=== PATIENT | male | born 1990 | race Two or more races ===

== ENCOUNTER → 2018-10-24 | Outpatient (REF) | payer OTHER ==
[2018-10-24 21:52] LABS: CHLAMYDIA DNA AMPLIFICATION NEGATIVE (NEGATIVE); GC DNA AMPLIFICATION NEGATIVE (NEGATIVE)
== END ==
LOC: M SFHCLERA 16:48
PROVIDERS: ATTEND Nurse Practitioner Family
DX: R30.0 Dysuria (principal)

== ENCOUNTER 2019-11-24 12:53 | Emergency (ER) | payer OTHER ==
[~2019-11-24] VITALS: Ht 172.7 cm; Wt 63.9 kg
--- NOTE | 2019-11-24 14:53 | REP ---
CT brain: 11/24/2019. Indication: Headache. Technique: Unenhanced axial CT images of the brain were obtained from skull base to vertex with coronal reconstructions provided. Comparison: None. Findings: There is no acute intracranial hemorrhage, acute cortical infarction, mass effect, hydrocephalus or significant fluid within the visualized paranasal sinuses/mastoid air cells. Impression: No acute intracranial process. Electronically Signed by Ajit Abdalla DO 11/24/2019 02:44 P
[2019-11-24] MEDS ORDERED: ONDA4TAB6 PO (15:03)
[2019-11-24] MEDS ORDERED: KETO10TAB PO (15:03)
[2019-11-24 15:26] VITALS: BP 137/84
== END 2019-11-24 15:27 | disposition home or self-care (01) ==
LOC: M ED 12:53
DX: R51 Headache (principal); R20.2 Paresthesia of skin

== ENCOUNTER 2020-02-07 15:12 | Emergency (ER) | payer OTHER ==
[~2020-02-07] VITALS: Ht 172.7 cm; Wt 62.7 kg
[~2020-02-07 15:12] MED LIST: KETO10TAB PO; ONDA4TAB6 PO
[2020-02-07] MEDS ORDERED: NS 1,000 ML IV ONE (15:30)
[2020-02-07] MEDS ORDERED: RIZA10TA58 PO (15:41)
[2020-02-07] MEDS ORDERED: AMIT10TA PO (15:41)
[2020-02-07 17:00] VITALS: BP 134/72
--- NOTE | 2020-02-13 13:10 | ECGEPIP ---
[facility] - ED Test Date: 2020-02-07 Pat Name: JENNIFER GENTILE Department: Room: - Gender: Male Patient Care Director: FAVIOLA : 1990 Requested By: VENKATESH Nuno Order Number: [id number] Reading MD: Sierra Alva Measurements Intervals [place] Rate: 55 P: 67 NV: 185 QRS: 88 QRSD: 90 T: 79 QT: 393 QTc: 379 Interpretive Statements SINUS BRADYCARDIA MINIMAL VOLTAGE CRITERIA FOR LVH, CONSIDER NORMAL VARIANT ST ELEVATION, PROBABLY EARLY REPOLARIZATION BORDERLINE ECG SEE SCANNED DOWNTIME REPORT
== END 2020-02-07 17:12 | disposition home or self-care (01) ==
LOC: M ED 15:12 → EDBD 15:12 → M ED 17:12
DX: R55 Syncope and collapse (principal); G43.909 Migraine, unspecified, not intractable, without status migrainosus; Z87.820 Personal history of traumatic brain injury

== ENCOUNTER 2020-03-05 11:23 | Emergency (ER) | payer OTHER ==
[~2020-03-05] VITALS: Ht 172.7 cm; Wt 67.3 kg
[~2020-03-05 11:23] MED LIST changes: +AMIT10TA PO; +RIZA10TA58 PO
[2020-03-05] MEDS ORDERED: D3 +TAB PO (11:32)
[2020-03-05] MEDS ORDERED: ACETAMINOPHEN 500 MG TAB PO ONE (12:00)
[2020-03-05] MEDS ORDERED: RIZATRIPTAN BENZOATE 10 MG TAB PO PRN (12:00)
[2020-03-05] MEDS ORDERED: METOCLOPRAMIDE 10 MG TAB PO ONE (12:00)
[2020-03-05 14:38] VITALS: BP 128/74
== END 2020-03-05 14:44 | disposition home or self-care (01) ==
LOC: M ED 11:23 → EDBD 11:23 → M ED 14:44
DX: G44.209 Tension-type headache, unspecified, not intractable (principal); Z79.899 Other long term (current) drug therapy; Z87.820 Personal history of traumatic brain injury

== ENCOUNTER 2020-04-14 09:16 | Emergency (ER) | payer OTHER ==
[~2020-04-14] VITALS: Ht 172.7 cm; Wt 64.4 kg
[~2020-04-14 09:16] MED LIST changes: +D3 +TAB PO
[2020-04-14 10:08] LABS: BASO % 0.6 % (0.0-1.0); EOS # 0.1 10^3/uL (0.0-0.5); EOS % 2.6 % (0.0-3.0); HEMATOCRIT 45.5 % (42.0-52.0); LYMPH # 1.1 10^3/uL (1.5-5.0); LYMPH % 32.7 % (24.0-44.0); MEAN CORPUSCULAR HEMOGLOBIN 27.7 pg (27.0-33.0); MEAN CORPUSCULAR HGB CONC 30.8 g/dl (32.0-36.5); MEAN CORPUSCULAR VOLUME 89.9 fl (80.0-96.0); MONO # 0.6 10^3/uL (0.0-0.8); MONO % 16.1 % (0.0-5.0); NEUTROPHILS # 1.6 10^3/uL (1.5-8.5); NEUTROPHILS % 47.7 % (36.0-66.0); PLATELET COUNT, AUTOMATED 178 10^3/uL (150-450); RED BLOOD COUNT 5.06 10^6/uL (4.30-6.10); WHITE BLOOD COUNT 3.4 10^3/uL (4.0-10.0)
[2020-04-14 10:24] LABS: BLOOD UREA NITROGEN 13 MG/DL (7-18); CALCIUM LEVEL 9.2 MG/DL (8.5-10.1); CARBON DIOXIDE LEVEL 30 MEQ/L (21-32); CHLORIDE LEVEL 106 MEQ/L (98-107); GLOMERULAR FILTRATION RATE > 60.0 (>60); GLUCOSE, FASTING 100 MG/DL (70-100); POTASSIUM SERUM 3.9 MEQ/L (3.5-5.1); SODIUM LEVEL 140 MEQ/L (136-145)
--- NOTE | 2020-04-14 10:56 | REP ---
INDICATION: b/l inguinal LAD, genital discomfort. COMPARISON: None FINDINGS: The right testicle measures 4.4 x 2.6 x 2.5 cm and the left testicle measures 4.5 x 2.3 x 2.7 cm. The testicular parenchymal echo pattern and vascular pattern are within normal limits bilaterally. There are no masses. There is no hyperemia. Incidental note is made of 2 mm sized right spermatoceles. There are minimal bilateral hydroceles. The right testicular RI is 0.66 on the left is 0.65. IMPRESSION: Minimal findings as described above. <Electronically signed by Ryne Lopez > 04/14/20 5730
--- NOTE | 2020-04-14 11:04 | REP ---
INDICATION: b/l inguinal LAD, b/l inguinal pain. COMPARISON: None TECHNIQUE: Ultrasonographic evaluation of the inguinal regions was obtained bilaterally. FINDINGS: There are multiple bilateral solid peripherally hypoechoic centrally echogenic oval and reniform shaped nodules which have vascular lilia. Three of the largest on the right are as follows: 1.8 x 0.8 x 1.3 cm, 0.6 x 0.5 x 0.6 cm, and 0.7 x 0.5 x 0.7 cm. Three of the largest on the left are as follows: 1.1 x 0.7 x 1.9 cm, 0.8 x 0.4 x 0.4 cm, and 0.4 x 0.2 x 0.3 cm. IMPRESSION: Bilateral lymph nodes in the inguinal region, as described above, some of which may be reactive and hypervascular. None are enlarged. This finding needs to be correlated clinically with appropriate follow-up. <Electronically signed by Ryne Lopez > 04/14/20 1100
[2020-04-14] MEDS ORDERED: cefTRIAXone SOD 250MG VIAL (J0696 PER 250MG) IM ONE (11:30)
[2020-04-14] MEDS ORDERED: LIDOCAINE 1% SDV 5ML VIAL DILUENT ONE (11:30)
[2020-04-14] MEDS ORDERED: AZITHROMYCIN 250MG TABLET PO ONE (11:30)
[2020-04-14 11:45] VITALS: BP 150/89
[2020-04-14 12:21] LABS: CHLAMYDIA DNA AMPLIFICATION NEGATIVE (NEGATIVE); GC DNA AMPLIFICATION NEGATIVE (NEGATIVE)
--- NOTE | 2020-04-16 10:30 | ED PDOC ---
Post-Departure Follow-Up pelvic us faxed formal report to gagan paiz for fu Diego Childers MD Apr 16, 2020 10:30
[2020-04-16 11:29] LABS: HEPATITIS B SURFACE ANTIBODY NEGATIVE (POSITIVE)
[2020-04-16 11:40] LABS: HEPATITIS B SURFACE ANTIGEN NEGATIVE (NEGATIVE)
[2020-04-16 12:08] LABS: HEPATITIS C VIRUS ABY INDEX < 0.0 INDEX (<0.8); HIV 1&2 SCREEN CENTAUR NEGATIVE (NEGATIVE)
== END 2020-04-14 11:47 | disposition home or self-care (01) ==
LOC: M ED 09:16
DX: N43.3 Hydrocele, unspecified (principal); N43.40 Spermatocele of epididymis, unspecified; R59.0 Localized enlarged lymph nodes
CPT/HCPCS: 36415; 76857; 76870; 80048; 81001; 85025; 86706; 86780; 86803; 87340; 87389; 87661; 93976; 96372; 99284; J0696

== ENCOUNTER → 2020-06-22 | Outpatient (CLI) | payer SELFPAY | LOC: M LABSMTC 11:27 | PROVIDERS: ATTEND Pediatrics | DX: Z20.822 Contact with and (suspected) exposure to COVID-19 (principal) ==

== ENCOUNTER 2020-07-25 14:08 | Emergency (ER) | payer OTHER ==
[~2020-07-25] VITALS: Ht 172.7 cm; Wt 67.5 kg
[2020-07-25 14:08] VITALS: BP 130/78
--- OUTSIDE RECORDS SUMMARY | 2020-07-25 14:37 | CCD ---
Author Author [facility] Organization [facility] Address Unknown Phone Unavailable Care Team Providers Care Wrapper Cashier Name Role Phone Francisco, T Kalin Unavailable Unavailable Francisco, T Kalin Unavailable Unavailable Francisco, T Kalin Unavailable Unavailable Francisco, T Kalin Unavailable Unavailable Francisco, T Kalin Unavailable Unavailable Francisco, T Kalin Unavailable Unavailable Francisco, T Kalin Unavailable Unavailable Francisco, T Kalin Unavailable Unavailable Francisco, T Kalin Unavailable Unavailable Francisco, T Kalin Unavailable Unavailable Francisco, T Kalin Unavailable Unavailable Francisco, T Kalin Unavailable Unavailable Francisco, T Kalin Unavailable Unavailable Latia No MD Unavailable Unavailable Latia No MD Unavailable Unavailable Latia No MD Unavailable Unavailable Latia No MD Unavailable Unavailable Latia No MD Unavailable Unavailable Latia No MD Unavailable Unavailable Latia No MD Unavailable Unavailable Latia No MD Unavailable Unavailable Latia No MD Unavailable Unavailable Latia No MD Unavailable Unavailable Latia No MD Unavailable Unavailable Latia No MD Unavailable Unavailable Latia No MD Unavailable Unavailable Latia No MD Unavailable Unavailable Latia No MD Unavailable Unavailable Latia No MD Unavailable Unavailable Latia No MD Unavailable Unavailable Latia No MD Unavailable Unavailable Latia No MD Unavailable Unavailable Latia No MD Unavailable Unavailable Latia No MD Unavailable Unavailable Latia No MD Unavailable Unavailable Latia No MD Unavailable Unavailable Latia No MD Unavailable Unavailable Latia No MD Unavailable Unavailable Latia No MD Unavailable Unavailable Latia No MD Unavailable Unavailable Latia No MD Unavailable Unavailable Latia No MD Unavailable Unavailable Latia No MD Unavailable Unavailable Latia No MD Unavailable Unavailable Latia No MD Unavailable Unavailable Latia No MD Unavailable Unavailable Latia No MD Unavailable Unavailable Ali, Latia MD Unavailable Unavailable Ali, Latia MD Unavailable Unavailable Ali, Latia MD Unavailable Unavailable Ali, Latia MD Unavailable Unavailable Ali, Latia MD Unavailable Unavailable Ali, Latia MD Unavailable Unavailable Ali, Latia MD Unavailable Unavailable Ali, Latia MD Unavailable Unavailable Ali, Latia MD Unavailable Unavailable Ali, Latia MD Unavailable Unavailable Ali, Latia MD Unavailable Unavailable Ali, Latia MD Unavailable Unavailable Ali, Latia MD Unavailable Unavailable Ali, Latia MD Unavailable Unavailable Ali, Latia MD Unavailable Unavailable Re-disclosure Warning The records that you are about to access may contain information from federally-assisted alcohol or drug abuse programs. If such information is present, then the following federally mandated warning applies: This information has been disclosed to you from records protected by federal confidentiality rules (42 CFR part 2). The federal rules prohibit you from making any further disclosure of this information unless further disclosure is expressly permitted by the written consent of the person to whom it pertains or as otherwise permitted by 42 CFR part 2. A general authorization for the release of medical or other information is NOT sufficient for this purpose. The Federal rules restrict any use of the information to criminally investigate or prosecute any alcohol or drug abuse patient.The records that you are about to access may contain highly sensitive health information, the redisclosure of which is protected by Article 27-F of the [facility] Public Health law. If you continue you may have access to information: Regarding HIV / AIDS; Provided by facilities licensed or operated by the [facility] Office of Mental Health; or Provided by the [facility] Office for People With Developmental Disabilities. If such information is present, then the following [facility] mandated warning applies: This information has been disclosed to you from confidential records which are protected by state law. State law prohibits you from making any further disclosure of this information without the specific written consent of the person to whom it pertains, or as otherwise permitted by law. Any unauthorized further disclosure in violation of state law may result in a fine or penitentiary sentence or both. A general authorization for the release of medical or other information is NOT sufficient authorization for further disc losure. Encounters Encounter Providers Location Date Indications Data Source(s ) Outpatient Attender: Latia No MD Main [facility] 05/08/2020 11:45:00 AM [facility] ([facility] ) [place] [address] [address] 04/06/2020 12:00:00 AM EST [facility] ([facility]) [place] [address] [address] 03/01/2020 12:00:00 AM EDT [facility] ([facility]) Outpatient Attender: Latia No MD Main office - [place] 02/02/2020 12:15:00 PM EDT [facility] ([facility], ) Outpatient Attender: Latia No MD Main office - [place] 12/27/2019 08:30:00 AM EDT [facility] ([facility] ) Outpatient Attender: Kalin Francisco 12/09/2019 11:47:00 AM EDT - 12/09/2019 12:47:00 PM EDT [facility] Medications Medication Brand Name Start Date Product Form Dose Route Admi nistrative Instructions Pharmacy Instructions Status Indications Reaction Description Data Source(s) Amitriptyline Hydrochloride 50 MG Oral Tablet Amitriptyline HCL 05/08/2020 12:00:00 AM EST ORAL active [facility] ([facility] ) rizatriptan 10 MG Disintegrating Oral Tablet Rizatriptan Tereso zoate 12/27/2019 12:00:00 AM EDT ORAL active [facility] ([facility] ) Amitriptyline Hydrochloride 10 MG Oral Tablet Amitriptyline HCL 12/27/2019 12:00:00 AM EDT ORAL completed [facility] ([facility] ) Insurance Providers Payer name Policy type / Coverage type Policy ID Covered libertarian ID Covered libertarian's relationship to smalls Policy Smalls Plan Information SELF PAY ONLY [id number] SP [id number] [employer] [address] [id number] SP [id number] [facility] HUMANA - O/P [id number] 18 [id number] [employer] [place] O [id number] S [id number] ANSI-Not a Secondary Insurance [id number] Problems, Conditions, and Diagnoses Code Display Name Description Problem Type Effective Dates Data Source(s) 93978260 Multiple sclerosis Multiple sclerosis Problem 12:00:00 AM EDT [facility] ([facility] ) 547821159 Disorders of initiating and maintaining sleep Disorders of initiating and maintaining sleep Problem 12/27/2019 12:00:00 AM EDT [facility] ([facility]) [id number] Cervico-occipital neuralgia Cervico-occipital neuralgi a Problem 12/27/2019 12:00:00 AM EDT [facility] ([facility] ) [id number] Migraine without aura, not refractory Mi graine without aura, not refractory Problem 12/27/2019 12:00:00 AM EDT [facility] ([facility] ) 170703763 Chronic tension-type headache Chronic tension-type hea dache Problem 12/27/2019 12:00:00 AM EDT [facility] ([facility] ) R51 Headache Headache Diagnosis 12/09/2019 11:47:00 AM ED T [facility] Surgeries/Procedures Procedure Description Date Indications Data Source(s) MRI Brain W/Contrast 01/11/2020 12:00:00 AM EDT [facility] ([facility] ) MRI Brain W/Contrast 01/11/2020 12:00:00 AM EDT [facility] ([facility] ) MRI Spine Cervical W/O Contrast, Followed By Contrast 01/11/2020 12:00:00 AM EDT [facility] ([facility]) MRI Spine Cervical W/O Contrast, Followed By Contrast 01/11/2020 12:00:00 AM EDT [facility] ([facility]) MRI Spine Thoracic W/O Contrast, Followed By Contrast 01/11/2020 12:00:00 AM EDT [facility] ([facility]) MRI Spine Thoracic W/O Contrast, Followed By Contrast 01/11/2020 12:00:00 AM EDT [facility] ([facility]) Needle electromyography, each extremity, with related paraspinal areas, when performed, done with nerve conduction, amplitude and latency/velocity study; complete, five or more muscles studied, innervated by three or more nerves or four or more spinal levels (list separately in addition to the code for primary procedure). 01/02/2020 12:00:00 AM EDT [facility] ([facility]) [address]403 Nerve conduction studies 5-6 studies NEW 201201/02/2020 12:00:00 AM EDT [facility] ([facility] ) Results ID Date Data Source [id number] 06/22/2020 12:00:00 AM EST [facility] Name Value Range Interpretation Code Description Data Shameka rce(s) Supporting Document(s) SARS-CoV-2 (COVID-19) RNA [Presence] in Respiratory specimen by MYRIAM with probe detection Not Detected NYSDMT This lab was ordered by [facility] and reported by [employer]. ID Date Data Source [id number] 12/12/2019 10:49:00 AM EDT [facility] [address] [place] [address] PHONE: [phone] FAX: [phone] Name .................. : KRUPA Concepcion Acct Number.................. : [id number] ROOM. ................. : MR Number ................... : [id number] Stay type ............. : O/P Discharge Date......... ... : 12/09/19 Admit Date ......... : 12/09/19 Admit Phys .................... : GERARDO MENESES Date of ....... : 1990 Family Phys ................... : UNKNOWN CO Phone .................. : [phone] Age ................................ : 29 Film# .................. .:[id number] Sex ................................. : M Unsigned transcriptions are preliminary reports and do not represent a medical or legal document MRI BRAIN W/O CONTRAST [id number] COMPLETE:12/09/19 13:12 [facility] 36119 (REASON FOR PROCEDURE CHRONIC HEADACHES MRI OF THE BRAIN WITHOUT CONTRAST: INDICATION: Chronic headaches. TECHNIQUE: Multiple imaging of the brain was acquired utilizing multiple pulse sequences. FINDINGS: Some mild motion artifact limiting some sequences. The ventricles and sulci are unremarkable. The midline structures are within normal limits. No midline shift. Normal T2 flow voids. Empty sella. No evidence of an acute infarct. The orbits are unremarkable. The visualized paranasal sinuses and mastoid air cells are unremarkable. IMPRESSION: No mass lesion, bleed or evidence of an acute infarct. The sella appears to be empty. Pituitary stalk identified and appears midline. Electronically Reviewed and Signed By Esdras Kaufman MD , 12/12/19 10:49, [facility] Transcribe Initials: VONDA , Transcribe Date: 12/09/19 23:51, Dictation Date: Copy for: GERARDO Ramírez Copy for: [address] [place] [address] Page 1 of 1 Name Value Range Interpretation Code Description Data Shameka rce(s) Supporting Document(s) Procedure Social History Code Duration Value Status Description Data Source(s ) Smoking 04/05/2020 12:00:00 AM EST Never Smoker completed Never S latisha [facility]CW1 ([facility]) Vital Signs ID Date Data Source UNK Name Value Range Interpretation Code Description Data Source(s) [place] body weight 154 [lb_av] 154 [lb_av] [facility] ([facility] ) Body mass index (BMI) [Ratio] 22.0 kg/m2 22.0 k g/m2 [facility] ([facility]) Body weight 145.00 [lb_av] 145.00 [lb_av] [facility] ([facility]) Body height 68 [in_i] 68 [in_i] [facility] ([facility], ) 5'8" Respiratory rate 14 /min 14 /min [facility] ( [facility]) Heart rate 70 /min 70 /min [facility] ([facility] ) Diastolic blood pressure 80 mm[Hg] 80 mm[Hg] [facility] ([facility] ) Systolic blood pressure 120 mm[Hg] 120 mm[Hg] Ayala GALLAGHER ([facility], )
--- OUTSIDE RECORDS SUMMARY | 2020-07-25 14:37 | CCD | Continuity of Care Document ---
Author Gill Islas M.D. Organization Unknown Address [address] [place] [address] Phone [phone] Care Team Providers Care Ring Cutter Lathe Operator Name Role Phone Joaquina BROCK Unavailable Problems Active Problems Provider Date Chronic tension-type headache Latia No M.D. Onset: Migraine without aura, not refractory Latia No M.D. On set: 12/27/2019 Cervico-occipital neuralgia Latia No M.D. Onset: 12/26 Disorders of initiating and maintaining sleep José Manuel Garnett Onset: 12/27/2019 Multiple sclerosis Latai No M.D. Onset: 12/27/2019 Social History Type Date Description Comments Sex Unknown Tobacco Use Start: Unknown Patient has never smoked Allergies, Adverse Reactions, Alerts Description No Known Drug Allergies Medications Active Medications SIG Qnty Indications Ordering Provide r Date Amitriptyline HCL 50mg Tablets 2 by mouth every night at bedtime. Latia No M.D. 020 Rizatriptan Benzoate 10mg Tablets Dispers 1 by mouth at headache onset, may repeat once after 2 hrs. 9tabs Latia No M.D. 12/27/2019 History Medications Amitriptyline HCL 10mg Tablets 2 by mouth every night at bedtime. 60tabs Latia No M.D. 020 - 05/08/2020 Immunizations Description No Information Available Vital Signs Date Vital Result Comment 12/27/2019 8:45am BP Systolic 120 mmHg BP Diastolic 80 mmHg Heart Rate 70 /min Respiratory Rate 14 /min Height 68 inches 5'8" Weight 145.00 lb BMI (Body Mass Index) 22.0 kg/m2 [place] Body Weight 154 lb Results Description No Information Available Procedures Date Code Description Status 01/11/2020 92487 MRI Spine Thoracic W/O Contrast, Followed By Contrast Completed 01/11/2020 19305 MRI Spine Thoracic W/O Contrast, Followed By Contrast Completed 01/11/2020 10339 MRI Spine Cervical W/O Contrast, Followed By Contrast Completed 01/11/2020 72774 MRI Spine Cervical W/O Contrast, Followed By Contrast Completed 01/11/2020 83036 MRI Brain W/Contrast Completed 01/11/2020 02661 MRI Brain W/Contrast Completed 01/02/2020 93296 Nerve Conduction 5-6 Studies Com pleted 01/02/2020 32529 Needle Electromyography Complete , Five Or More Muscles Studied Completed Medical Devices Description No Information Available Encounters Type Date Location Provider Dx Diagnosis Office Visit 02/02/2020 12:15[place] G35 Multiple sclerosis G44.221 Chronic tension-type headach e, intractable G43.009 Migraine w/o aura, not intra ctable, w/o status migrainosus M54.81 Occipital neuralgia F51.01 Primary insomnia Office Visit 12/27/2019 8:30a [place] G44.221 Chronic tension-type headache, intractable G43.009 Migraine w/o aura, not intra ctable, w/o status migrainosus M54.81 Occipital neuralgia F51.01 Primary insomnia G35 Multiple sclerosis Assessments Date Code Description Provider 02/02/2020 G35 Multiple sclerosis Ayala Garnett 02/02/2020 G44.221 Chronic tension-type headache, i ntractable Latia No M.D. 02/02/2020 G43.009 Migraine without aur a, not intractable, without status migrainosus Latia No M.D. 02/02/2020 M54.81 Occipital neuralgia Latia No M.D. 02/02/2020 F51.01 Primary insomnia Oscar Garnett 01/11/2020 G35 Multiple sclerosis Kristin Resendiz M.D. 01/11/2020 G35 Multiple sclerosis MRI 01/02/2020 G56.22 Lesion of ulnar nerve, left uppe r limb Latia No M.D. 12/27/2019 G44.221 Chronic tension-type headache, i ntractable Latia No M.D. 12/27/2019 G43.009 Migraine without aur a, not intractable, without status migrainosus Latia No M.D. 12/27/2019 M54.81 Occipital neuralgia Latia No M.D. 12/27/2019 F51.01 Primary insomnia Oscar Garnett 12/27/2019 G35 Multiple sclerosis Ayala Garnett Plan of Treatment No Information Available Functional Status Description No Information Available Mental Status Description No Information Available Referrals Refer to Reason for Referral Status Appt Date Pino Espana M.D. SPINAL TAP FOR MULTIPLE SCLEROSIS PROTOCOL -- NEED AUTH Created [facility] [address] [place] [address] [phone] Latia No M.D. Created [facility] [address] [place] [address] [phone] Latia No M.D. Created [facility] [address] [place] [address] [phone] Latia No M.D. Created [facility] [address] [place] [address] [phone]
--- OUTSIDE RECORDS SUMMARY | 2020-07-25 14:37 | CCD | Continuity of Care Document ---
Author Gill Islas M.D. Organization Unknown Address [address] [place] [address] Phone [phone] Care Team Providers Care Software Intern Name Role Phone Joaquina Gallegos REFUGIOAyala Unavailable Problems Active Problems Provider Date Chronic tension-type headache Latia No M.D. Onset: Migraine without aura, not refractory Latia No M.D. On set: 12/27/2019 Cervico-occipital neuralgia Latia No M.D. Onset: 12/26 Disorders of initiating and maintaining sleep José Manuel Garnett Onset: 12/27/2019 Multiple sclerosis Latia No M.D. Onset: 12/27/2019 Social History Type Date Description Comments Sex Unknown Tobacco Use Start: Unknown Patient has never smoked Allergies, Adverse Reactions, Alerts Description No Known Drug Allergies Medications Active Medications SIG Qnty Indications Ordering Provide r Date Amitriptyline HCL 50mg Tablets 1 by mouth every night at bedtime. 90tabs Latia No M.D. 020 Rizatriptan Benzoate 10mg [...] lb BMI (Body Mass Index) 22.0 kg/m2 [place] Body Weight 154 lb Results Description No Information Available Procedures Date Code Description Status 01/11/2020 13283 MRI Spine Thoracic W/O Contrast, Followed By Contrast Completed 01/11/2020 16288 MRI Spine Thoracic W/O Contrast, Followed By Contrast Completed 01/11/2020 78139 MRI Spine Cervical W/O Contrast, Followed By Contrast Completed 01/11/2020 67596 MRI Spine Cervical W/O Contrast, Followed By Contrast Completed 01/11/2020 22709 MRI Brain W/Contrast Completed 01/11/2020 44946 MRI Brain W/Contrast Completed 01/02/2020 80873 Nerve Conduction 5-6 Studies Com pleted 01/02/2020 66808 Needle Electromyography Complete , Five Or More Muscles Studied Completed Medical Devices Description No Information Available Encounters Type Date Location Provider Dx Diagnosis Office Visit 05/08/2020 12:45p [place] G35 Multiple sclerosis G44.221 Chronic tension-type headach e, intractable G43.009 Migraine w/o aura, not intra ctable, w/o status migrainosus M54.81 Occipital neuralgia F51.01 Primary insomnia Office Visit 02/02/2020 12:15p [place] G35 Multiple sclerosis G44.221 Chronic tension-type headach e, intractable G43.009 Migraine w/o aura, not intra ctable, w/o status migrainosus M54.81 Occipital neuralgia F51.01 Primary insomnia Office Visit 12/27/2019 8:30a [place] G44.221 Chronic tension-type headache, intractable G43.009 Migraine w/o aura, not intra ctable, w/o status migrainosus M54.81 Occipital neuralgia F51.01 Primary insomnia G35 Multiple sclerosis Assessments Date Code Description Provider 05/08/2020 G35 Multiple sclerosis Ayala Garnett 05/08/2020 G44.221 Chronic tension-type headache, i ntractable Latia No M.D. 05/08/2020 G43.009 Migraine without aur a, not intractable, without status migrainosus Latia No M.D. 05/08/2020 M54.81 Occipital neuralgia Latia No M.D. 05/08/2020 F51.01 Primary insomnia Oscar Garnett 02/02/2020 G35 Multiple sclerosis Ayala Garnett 02/02/2020 G44.221 Chronic tension-type headache, i ntractable Latia No M.D. 02/02/2020 G43.009 Migraine without aur a, not intractable, without status migrainosus Latia No M.D. 02/02/2020 M54.81 Occipital neuralgia Latia No M.D. 02/02/2020 F51.01 Primary insomnia Oscar Garnett 01/11/2020 G35 Multiple sclerosis Kristin AstridKimmy pugh 01/11/2020 G35 Multiple sclerosis MRI 01/02/2020 G56.22 Lesion of ulnar nerve, left uppe r limb Latia No M.D. 12/27/2019 G44.221 Chronic tension-type headache, i ntrshamar No M.D. 12/27/2019 G43.009 Migraine without aur a, not intractable, without status migrainosus Latia No M.D. 12/27/2019 M54.81 Occipital neuralgia Latia No M.D. 12/27/2019 F51.01 Primary insomnia Oscar Garnett 12/27/2019 G35 Multiple sclerosis Ayala Garnett Plan of Treatment No Information Available Functional Status Description No Information Available Mental Status Description No Information Available Referrals Refer to Dr Reason for Referral Status Appt Date Pino Espana M.D. SPINAL TAP FOR MULTIPLE SCLEROSIS PROTOCOL -- NEED AUTH Created [facility] [address] [place] [address] [phone] Latia No M.D. Created [facility] [address] [place] [address] [phone] Latia No M.D. Created [facility] [address] [place] [address] [phone] Latia No M.D. Created [facility] [address] [place] [address] [phone]
--- OUTSIDE RECORDS SUMMARY | 2020-07-25 16:22 | CCD ---
Author Author [facility] Organization [facility] Address Unknown Phone Unavailable Care Team Providers Care Amr Physician Name Role Phone Francisco, T Kalin Unavailable [...] is protected by Article 27-F of the [facility] Public Health law. If you continue you may have access to information: Regarding HIV / AIDS; Provided by facilities licensed or operated by the [facility] Office of Mental Health; or Provided by the [facility] Office for People With Developmental Disabilities. If such information is present, then the following [facility] mandated warning applies: This information has been [...] law may result in a fine or long-term sentence or both. A general authorization for the release of medical or other information is NOT sufficient authorization for further disc losure. Encounters Encounter Providers Location Date Indications Data Source(s ) Outpatient Attender: Latia No MD Main [facility] 05/08/2020 11:45:00 AM [facility] ([facility] ) [place] [address] [address] 04/06/2020 12:00:00 AM EST eCW1 ([facility]) [place] [address] [address] 03/01/2020 12:00:00 AM EDT eCW1 ([facility]) Outpatient Attender: Latia No MD Main office - [place] 02/02/2020 12:15:00 PM EDT [facility] ([facility], ) Outpatient Attender: Latia No MD Main office - [place] 12/27/2019 08:30:00 AM EDT [facility] ([facility] ) Outpatient Attender: Kalin Francisco 12/09/2019 11:47:00 AM EDT - 12/09/2019 12:47:00 PM EDT [facility] Medications Medication Brand Name Start Date Product Form Dose Route Admi nistrative Instructions Pharmacy Instructions Status Indications Reaction Description Data Source(s) Amitriptyline Hydrochloride 50 MG Oral Tablet Amitriptyline HCL 05/08/2020 12:00:00 AM EST ORAL active M [facility] ([facility], ) rizatriptan 10 MG Disintegrating Oral Tablet Rizatriptan Tereso zoate 12/27/2019 12:00:00 AM EDT ORAL active M [facility] ([facility] ) Amitriptyline Hydrochloride 10 MG Oral Tablet Amitriptyline HCL 12/27/2019 12:00:00 AM EDT ORAL completed [facility] ([facility] ) Insurance Providers Payer name Policy type / Coverage type Policy ID Covered libertarian ID Covered libertarian's relationship to smalls Policy Smalls Plan Information [facility] ACTIVE DUTY [id number] SP [id number] SELF PAY ONLY [id number] SP [id number] [facility] HUMANA - O/P [id number] 18 [id number] [facility] O [id number] S [id number] ANSI-Not a Secondary Insurance [id number] Problems, Conditions, and Diagnoses Code Display Name Description Problem Type Effective Dates Data Source(s) 77241078 Multiple sclerosis Multiple sclerosis Problem 12:00:00 AM EDT [facility] ([facility] ) 810301247 Disorders of initiating and maintaining sleep Disorders of initiating and maintaining sleep Problem 12/27/2019 12:00:00 AM EDT [facility] ([facility]) [id number] Cervico-occipital neuralgia Cervico-occipital neuralgi a Problem 12/27/2019 12:00:00 AM EDT [facility] ([facility] ) [id number] Migraine without aura, not refractory Mi graine without aura, not refractory Problem 12/27/2019 12:00:00 AM EDT [facility] ([facility] ) 682094521 Chronic tension-type headache Chronic tension-type hea dache Problem 12/27/2019 12:00:00 AM EDT [facility] ([facility] ) R51 Headache Headache Diagnosis 12/09/2019 11:47:00 AM ED T [facility] Surgeries/Procedures Procedure Description Date Indications Data Source(s) MRI Brain W/Contrast 01/11/2020 12:00:00 AM EDT [facility] ([facility] ) MRI Brain W/Contrast 01/11/2020 12:00:00 AM EDT [facility] ([facility] ) MRI Spine Cervical W/O Contrast, Followed By Contrast 01/11/2020 12:00:00 AM EDT [facility] ([facility]) MRI Spine Cervical W/O Contrast, Followed By Contrast 01/11/2020 12:00:00 AM EDT [facility] ([facility]) MRI Spine Thoracic W/O Contrast, Followed By Contrast 01/11/2020 12:00:00 AM EDT [facility] ([facility]) MRI Spine Thoracic W/O Contrast, Followed By Contrast 01/11/2020 12:00:00 AM EDT [facility] ([facility]) Needle electromyography, each extremity, with related paraspinal areas, when performed, done with nerve conduction, amplitude and latency/velocity study; complete, five or more muscles studied, innervated by three or more nerves or four or more spinal levels (list separately in addition to the code for primary procedure). 01/02/2020 12:00:00 AM EDT [facility] T ([facility]) [address] Nerve conduction studies 5-6 studies NEW 201201/02/2020 12:00:00 AM EDT [facility] ([facility] ) Results ID Date Data Source [id number] 06/22/2020 12:00:00 AM EST [facility] Name Value Range Interpretation Code Description Data Shameka rce(s) Supporting Document(s) SARS-CoV-2 (COVID-19) RNA [Presence] in Respiratory specimen by MYRIAM with probe detection Not Detected [facility] This lab was ordered by [facility] and reported by [employer]. ID Date Data Source [id number] 12/12/2019 10:49:00 AM EDT [facility] [address] [place] [address] PHONE: [phone] FAX: [phone] Name .................. : KRUPA Concepcion Acct Number.................. : [id number] ROOM. ................. : MR Number ................... : [id number] Stay type ............. : O/P Discharge Date......... ... : 12/09/19 Admit Date ......... : 12/09/19 Admit Phys .................... : GERARDO MENESES Date of ....... : 1990 Family Phys ................... : UNKNOWN CO Phone .................. : [phone] Age ................................ : 29 Film# .................. .:[id number] Sex ................................. : M Unsigned transcriptions are preliminary reports and do not represent a medical or legal document MRI BRAIN W/O CONTRAST [id number] COMPLETE:12/09/19 13:12 [facility] 48855 (REASON FOR PROCEDURE CHRONIC HEADACHES MRI OF [...] Date: Copy for: GERARDO Ramírez Copy for: [address] [place] [address] Page 1 of 1 Name Value Range Interpretation Code Description Data Shameka rce(s) Supporting Document(s) Procedure Social History Code Duration Value Status Description Data Source(s ) Smoking 04/05/2020 12:00:00 AM EST Never Smoker completed Never S latisha eCW1 ([facility]) Vital Signs ID Date Data Source UNK Name Value Range Interpretation Code Description Data Source(s) Rinard body weight 154 [lb_av] 154 [lb_av] [facility] T ([facility] ) Body mass index (BMI) [Ratio] 22.0 kg/m2 22.0 k g/m2 [facility] ([facility]) Body weight 145.00 [lb_av] 145.00 [lb_av] [facility] T ([facility]) Body height 68 [in_i] 68 [in_i] [facility] ([facility] ) 5'8" Respiratory rate 14 /min 14 /min [facility] ( [facility]) Heart rate 70 /min 70 /min [facility] ([facility] ) Diastolic blood pressure 80 mm[Hg] 80 mm[Hg] [facility] ([facility] ) Systolic blood pressure 120 mm[Hg] 120 mm[Hg] Ayala GALLAGHER ([facility], )
== END 2020-07-25 16:23 | disposition left against medical advice (07) ==
LOC: M ED 14:08
DX: Z53.21 Procedure and treatment not carried out due to patient leaving prior to being seen by health care provider (principal)

== ENCOUNTER 2020-08-09 12:15 | Emergency (ER) | payer OTHER ==
[~2020-08-09] VITALS: Ht 172.7 cm; Wt 68.0 kg
[~2020-08-09 12:15] MED LIST changes: -AMIT10TA PO; +AMIT10TA7 PO
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
[2020-08-09] MEDS ORDERED: NAPR-837 PO (14:58)
[2020-08-09 15:09] VITALS: BP 122/84
== END 2020-08-09 15:10 | disposition home or self-care (01) ==
LOC: M ED 12:15
DX: S16.1XXA Strain of muscle, fascia and tendon at neck level, initial encounter (principal); S39.012A Strain of muscle, fascia and tendon of lower back, initial encounter; S13.4XXA Sprain of ligaments of cervical spine, initial encounter; S33.5XXA Sprain of ligaments of lumbar spine, initial encounter; S73.102A Unspecified sprain of left hip, initial encounter; V49.49XA Driver injured in collision with other motor vehicles in traffic accident, initial encounter; Y92.410 Unspecified street and highway as the place of occurrence of the external cause; D75.A Glucose-6-phosphate dehydrogenase (G6PD) deficiency without anemia; Z79.899 Other long term (current) drug therapy

== ENCOUNTER 2020-11-03 18:14 | Emergency (ER) | payer OTHER ==
[~2020-11-03] VITALS: Ht 172.7 cm; Wt 63.6 kg
[~2020-11-03 18:14] MED LIST changes: +NAPR-837 PO
[2020-11-03] MEDS ORDERED: AMIT50TA PO (18:20)
--- NOTE | 2020-11-03 20:03 | REP ---
INDICATION: feel like something is stuck in throat. COMPARISON: None. TECHNIQUE: AP and lateral soft tissue neck radiographs FINDINGS: Airways patent, midline and normal. Surrounding soft tissues are unremarkable. No subcutaneous emphysema or obvious foreign body. The osseous structures are intact and age-appropriate. IMPRESSION: Normal soft tissue neck radiographs. <Electronically signed by Karel Malik > 11/03/201958
[2020-11-03 20:44] VITALS: BP 136/85
== END 2020-11-03 20:57 | disposition home or self-care (01) ==
LOC: M ED 18:14
DX: R09.89 Other specified symptoms and signs involving the circulatory and respiratory systems (principal); D75.A Glucose-6-phosphate dehydrogenase (G6PD) deficiency without anemia

== ENCOUNTER 2021-05-15 22:39 | Emergency (ER) | payer OTHER ==
[~2021-05-15] VITALS: Ht 172.7 cm; Wt 66.8 kg
[2021-05-15 22:39] VITALS: BP 137/94
[~2021-05-15 22:39] MED LIST changes: +AMIT50TA PO
--- NOTE | 2021-05-16 00:24 | REPVR ---
PROCEDURE INFORMATION: Exam: US Scrotum Exam date and time: 05/16/2021 12:06 AM Age: 30 years old Clinical indication: Groin pain; Additional info: Testicular pain x2 days TECHNIQUE: Imaging protocol: Real-time ultrasound of the scrotum and contents with color Doppler and image documentation. COMPARISON: Scrotal, US 04/14/2020 10:01 AM FINDINGS: Right testicle: Normal. No mass. No torsion. Normal vascular flow. Left testicle: Normal. No mass. No torsion. Normal vascular flow. Epididymides: 5 mm right epididymal head cyst. Right epididymis is otherwise unremarkable. Left epididymis is unremarkable. Scrotum: Small left hydrocele. Lymph nodes: Bilateral inguinal lymph nodes are present measuring up to 01.7 cm. IMPRESSION: 1. 5 mm right epididymal head cyst. 2. Small left hydrocele. 3. No testicular torsion or mass. No acute findings. 4. Nonspecific bilateral inguinal lymph nodes. Electronically signed by: Rohan Knight On 05/16/2021 00:24:15 AM
--- NOTE | 2021-05-16 15:47 | ED PDOC ---
Post-Departure Follow-Up radiology report faxed to [facility] Sierra Alav MD May 16, 2021 15:47
== END 2021-05-16 03:08 | disposition left against medical advice (07) ==
LOC: M ED 22:39
DX: Z53.29 Procedure and treatment not carried out because of patient's decision for other reasons (principal)